=== PATIENT | male | born 1945 | race Caucasian/White ===

== ENCOUNTER 2016-05-26 09:29 | Emergency (ER) | payer OTHER ==
[~2016-05-26 09:29] MED LIST: ALBUTEROL2.5 MG/3 M IN; ARIPIPRAZOLE10 MG; ASMANEX; ASPIRIN 81 LOW81 MG PO; GABAPENTIN300 MG PO; HYDROXYZINE HCL25 MG PO; LOPRESSOR25 MG PO; MS CONTIN15 MG PO; NITROSTAT0.4 MG SL; OMEPRAZOLE20 M1; SIMVASTATIN40 MG
--- NOTE | 2016-05-26 10:25 | DIAGNOSTIC IMAGING REPORT ---
PROCEDURE: XR CHEST 2 VIEW INDICATION: COUGH TECHNIQUE: PA and lateral views. COMPARISON: Chest 08/07/2015 FINDINGS: Lungs are clear. Heart and mediastinum are normal. Thorax is normal. IMPRESSION: 1. Negative chest.
--- NOTE | 2016-05-26 12:25 | ED ORDER SUMMARY ---
..... Patient: KYRA PARIKH OrderSheet [facility] VisitID: [id number] [place] [address] 70y, M Registration Date/Time: 05/26/2016 ORDER SHEET Weight: 97.5 kg (stated) Allergies: No Known Drug Allergy GENERAL ORDERS: Chest 2V Urgent (09:46 05/26/2016 Vielka BARONE) (Ack 9:48 Reed) (10:16 JSimbeck R.N.) Rapid Influenza Screen (Nasal Pharyngeal) (swab) Urgent (09:47 05/26/2016 Vielka BARONE) (Ack 9:48 Reed) (9:55 JSimbeck R.N.) Relocation Manager (Continuous) (10:14 05/26/2016 Vielka BARONE) (Ack 11:04 TBergley) (11:41 JSanders R.N.) - (Please irrigate L ear) (10:14 05/26/2016 Vielka BARONE) (10:48 TBergley) BNP Urgent (10:05/26/2016 Vielka BARONE) (Ack 10:29 Reed) (10:54 JSanders R.N.) CBC w Diff Urgent (10:14 05/26/2016 Vielka BARONE) (Ack 10:29 Reed) (10:54 JSanders R.N.) CMP Urgent (10:14 05/26/2016 Vielka BARONE) (Ack 10:29 Reed) (10:54 JSanders R.N.) Pulse oximeter (10:14 05/26/2016 Vielka BARONE) (10:16 JSimbeck R.N.) MEDICATION ORDERS: Zithromax PO 500 mg (NOW) (12:13 05/26/2016 Vielka BARONE) (12:28 JSanders R.N.) Tylenol PO 650 mg (NOW) (12:33 05/26/2016 CLARKanders R.N. verbal order read back to Vielka BARONE) (12:37 JSanders R.N.) IV FLUIDS: IV NS : initial bolus 1000 mL (1000 mL/hr), then none - (NOW) (10:14 05/26/2016 Vielka BARONE) (11:08 Ramona Gagnon) ORDER SHEET NOTES: [Electronically signed by Ana Paula Alba R.N. (13:18 05/26/2016)] [Electronically signed by Lynette Rivers MD (06:24 05/30/2016)] [Electronically locked/signed by Ana Paula Alba R.N. (13:18 05/26/2016)]
--- NOTE | 2016-05-26 12:25 | ED CLINICAL REPORT ---
Clinical Report - Physicians/Mid Levels [facility] [address] [place] [address] 05/26/2016 9:31 Patient: KYRA PARIKH Time Seen: 09:44. Arrived- By private vehicle. Historian- patient. HISTORY OF PRESENT ILLNESS Chief Complaint: DYSPNEA and cough. This started about 1 week ago and is still present. The dyspnea is described as moderate. The patient has had a cough, chills and dyspnea on exertion. He has had moderate amounts of thick sputum. No fever, sweating episodes, wheezing or chest pain or discomfort. No calf pain, foot swelling, orthopnea, anxiety or dizziness. No tingling, numbness or palpitations. (Pt's states that their 3-year-old daughter had URI-type sx, and that pt began to have the above sx shortly after. Pt states that he has not been feeling increasingly worse, just is not feeling better. Pt tried taking his albuterol inhaler this morning, and states it did not seem to help.). Similar symptoms previously: Recent medical care: Not recently seen/assessed. REVIEW OF SYSTEMS The patient has had a nasal discharge and nausea but not had weight loss. No muscle aches, eye irritation, sore throat, sinus drainage or vomiting. No abdominal pain, diarrhea, black stools, bloody stools or headache. No fainting episodes, blurred vision, difficulty with urination, skin rash or enlarged lymph nodes. No joint pain. All systems otherwise negative, except as recorded above. PAST HISTORY Medications: Albuterol Sulfate Inhalation. ARIPiprazole Oral (Tablet 20 mg) 1 tablet. Aspirin EC Oral (Tablet Delayed Release 81 mg) 1 tablet, daily. Gabapentin Oral (Capsule 300 mg) 2 capsules, 3x a day. HydrOXYzine HCl Oral (Tablet 50 mg) 2 tablets, at bedtime. Metoprolol Tartrate Oral (Tablet 25 mg) 1/2 tablet, BID. Mometasone Furoate Inhalation. Morphine Sulfate Oral (Tablet 15 mg) 1 tablet, 4x a day as needed. Omeprazole Oral (Tablet Delayed Release 20 mg) 1 tablet, 2x a day. Simvastatin Oral (Tablet 40 mg) 1 tablet, daily. Allergies: No Known Drug Allergy. SOCIAL HISTORY Former smoker. Occasional alcohol use. ADDITIONAL NOTES The nursing notes have been reviewed. PHYSICAL EXAM Vital Signs: 05/26/2016 09:37 BP: 158/98. HR: 113. RR: 24. O2 saturation: 96%. Temp: 98.7 F. Pain level now: 310. Have been reviewed. Appearance: Alert. No acute distress. (Pt appears moderately uncomfortable.). Eyes: Pupils equal, round and reactive to light. Eyes normal inspection. ENT: Left TM completely obscured by cerumen. Cleared with irrigation. Nose normal. Neck: Normal inspection. CVS: Normal heart rate and rhythm. Heart sounds normal. Pulses normal. Respiratory: No respiratory distress. Breath sounds normal. Abdomen: Soft and nontender. Back: Normal inspection. Skin: Skin warm and dry. Normal skin color. No rash. Normal skin turgor. Extremities: Extremities exhibit normal ROM. No lower extremity edema. Neuro: Oriented X 3. No motor deficit. No sensory deficit. LABS, X-RAYS, AND EKG Chest X-ray: No acute disease. Normal lung markings present. Normal heart size. Mediastinum normal. Great vessels normal. Soft tissues normal. No infiltrate. No fracture. No bony lesion present. Views: PA and lateral. Technique: good. The X-rays were independently viewed by me, interpreted by the radiologist and contemporaneously by me and discussed with the radiologist. Prior films were not available for comparison. Laboratory Tests: CBC w Diff: (BERNARD: 05/26/2016 10:40) ( MsgRcvd 05/26/2016 11:35) Final results Test Result Flag Units (Reference) WHITE BLOOD COUNT 16.8 H K/uL (4.5-11.5) RED BLOOD COUNT 5.34 M/uL (4.50-5.90) HEMOGLOBIN 16.0 gm/dL (13.5-17.5) HEMATOCRIT 48.2 % (41.0-53.0) MEAN CELL VOLUME 90 fL (80-100) MEAN CORPUSCULAR HGB 30 pg (26-34) MEAN CORPUSCULAR HGB CONC 33 g/dL (31-37) RED CELL DISTRIBUTION WIDTH 13.6 % (11.6-14.8) PLATELET COUNT 282 K/uL (150-400) NEUTROPHIL % 87.1 H % (50-75) LYMPH % 6.1 L % (25-40) MONO % 6.5 % (3-14) EOSINOPHIL % 0.1 % (0-4) BASOPHIL % 0.2 % (0-2) BNP: (BERNARD: 05/26/2016 10:40) ( [facility] 05/26/2016 12:06) Final results Test Result Flag Units (Reference) B-TYPE NATRIURETIC PEPTIDE 35.9 pg/ml (5-100) CMP: (BERNARD: 05/26/2016 10:40) ( MsgRcvd 05/26/2016 12:01) Final results Test Result Flag Units (Reference) GLUCOSE 120 H mg/dL (70-110) BUN 16 mg/dL (7-18) CREATININE 0.7 mg/dL (0.6-1.3) Estimated GFR >60 mL/min Estimated GFR- >60 mL/min Note: Persistent reduction over 3 months in eGFR<60 mL/min/1.73 m2 defines CKD. Patients with eGFR values>=60 mL/min/1.73 m2 may also have CKD if evidence ofpersistent proteinuria. Additional information may be foundat www.kidney.org. SODIUM 143 mmol/L (136-145) POTASSIUM 3.3 L mmol/L (3.5-5.1) CHLORIDE 105 mmol/L (98-107) CARBON DIOXIDE 24 mmol/L (21-32) CALCIUM 9.0 mg/dL (8.5-10.1) TOTAL PROTEIN 7.5 g/dL (6.4-8.2) ALBUMIN 3.7 g/dL (3.3-5.0) BILIRUBIN, TOTAL 0.8 mg/dL (0.0-1.0) ALKALINE PHOSPHATASE 67 U/L (46-116) AST (SGOT) 15 U/L (15-37) ALT (SGPT) 19 U/L (12-78) Rapid Influenza Screen: (BERNARD: 05/26/2016 09:53) ( [facility] [place] 05/26/2016 10:15) Final results SPECIMEN DESCRIPTION: SWAB Test Result Flag Units (Reference) RAPID INFLUENZA SCREEN DATE: 05/26/16 INFLUENZA A: NEGATIVE SCREEN FOR INFLUENZA A INFLUENZA B: NEGATIVE SCREEN FOR INFLUENZA B . Pulse Oximetry: 05/26/2016 09:37 O2 saturation: 96%. (FIO2 - room air). Interpretation: normal. PROGRESS AND PROCEDURES Course of Care: PT was given a liter of NS. He was worked up with labs (leukocytosis, mild hyperglycemia and hypokalemia), influenza swab (-), and CXR (-). He was given a liter of NS, and a dose of Zithromax for bronchitis. No emergent condition identified. Patient and family counseled in person regarding the patient's stable condition, test results, diagnosis and need for follow-up. Concerns were addressed. Old medical records reviewed. Disposition: Discharged. Condition: stable and improved. CLINICAL IMPRESSION Acute bacterial bronchitis associated with chronic obstructive pulmonary disease. Acute viral (presumed) rhinitis. Impacted cerumen left ear. INSTRUCTIONS (Your chest x-ray is clear, and your influenza test is negative. Your labs look good, other than your white blood cell count being elevated (not surprising, with your respiratory illness). You most likely have a viral illness, with some bronchitis on top of this (you have increased susceptibility to develop bronchitis, having COPD). You have been started on antibiotics for this.). Warnings: GENERAL WARNINGS: Return or contact your physician immediately if your condition worsens or changes unexpectedly, if not improving as expected, or if other problems arise. Your Current Medications: CONTINUE TAKING THE FOLLOWING MEDICATIONS: Albuterol Sulfate Inhalation. ARIPiprazole Oral : Tablet 20 mg, 1 tablet. Aspirin EC Oral : Tablet Delayed Release 81 mg, 1 tablet daily. Gabapentin Oral : Capsule 300 mg, 2 capsules 3x a day. HydrOXYzine HCl Oral : Tablet 50 mg, 2 tablets at bedtime. Metoprolol Tartrate Oral : Tablet 25 mg, 1/2 tablet BID. Mometasone Furoate Inhalation. Morphine Sulfate Oral : Tablet 15 mg, 1 tablet 4x a day, prn. Omeprazole Oral : Tablet Delayed Release 20 mg, 1 tablet 2x a day. Simvastatin Oral : Tablet 40 mg, 1 tablet daily. Prescription Medications: Zithromax Z-Aubrey: Take according to package instructions 2 orally today, followed by 1 orally every day for the next 4 days. Total course 5 days. No refills. Substitution is permissible. Follow-up: Follow up with your doctor in five days if not better. Understanding of the discharge instructions verbalized by patient and family. (Electronically signed by Lynette Rivers MD 05/30/2016 6:24)
--- NOTE | 2016-05-26 12:25 | ED NURSING NOTES ---
Clinical Report - Nurses [facility] [address] [place] [address] 05/26/2016 9:31 Patient: KYRA PARIKH TRIAGE Triage time 09:37. Acuity: LEVEL 3. Chief Complaint: SHORTNESS OF BREATH and DIFFICULTY BREATHING and (Chills, onset 1 week ago, SOB worse this am.). 09:41 05/26/16. SEPSIS SCREEN: Sepsis Screen. Negative (no infection suspected/documented). JAMILA COMA SCORE: [place] Coma Scale: 15- eyes open spontaneously (4); best verbal response- oriented x 4 (5); best motor response- obeys commands (6). --09:42 Noel Odonnell R.N. 09:37 05/26/16. BP: 158/98. HR: 113. RR: 24. O2 saturation: 96% on room air. Temp: 98.7 F (oral). Pain level now: 06/10. --09:42 Noel Odonnell R.N. Weight: 97.5 kg stated. Height/Length: 72 inches Per Patient. BMI: 29.2. --09:40 Noel Odonnell R.N. Medications Albuterol Sulfate Inhalation. ARIPiprazole Oral (Tablet 20 mg) 1 tablet. Aspirin EC Oral (Tablet Delayed Release 81 mg) 1 tablet, daily. Gabapentin Oral (Capsule 300 mg) 2 capsules, 3x a day. HydrOXYzine HCl Oral (Tablet 50 mg) 2 tablets, at bedtime. Metoprolol Tartrate Oral (Tablet 25 mg) 1/2 tablet, BID. Mometasone Furoate Inhalation. Morphine Sulfate Oral (Tablet 15 mg) 1 tablet, 4x a day as needed. Omeprazole Oral (Tablet Delayed Release 20 mg) 1 tablet, 2x a day. Simvastatin Oral (Tablet 40 mg) 1 tablet, daily. --09:39 Noel Odonnell R.N. Allergies No Known Drug Allergy. --09:39 Noel Odonnell R.N. History Arrived by private vehicle. Historian: patient and family. SOCIAL HX: Former smoker, end date 1993. Occasional alcohol use. History of drug use: marijuana. (daily). Infectious disease exposure. (scottie has been sick, but is improving now.). ABUSE ASSESSMENT: No report of abuse. --09:42 Noel Odonnell R.N. PROBLEMS: Chest Pain. Abnormal EKG. Chronic pain in neck and back. COPD - Chronic Obstructive Pulmonary Disease. Depression. Anxiety Reaction. Gastroesophageal Reflux. Hyperlipidemia. Syncope. Hypertension. Lung Disease. --09:40 Noel Odonnell R.N. ADDITIONAL SURGERIES: Appendectomy. Cholecystectomy. Hernia Repair. --09:40 Noel Odonnell R.N. Interventions ID band on patient. To treatment room. --09:42 Noel Odonnell R.N. PHYSICAL ASSESSMENT 09:49 05/26/16. To room via wheelchair. GENERAL / NEURO / PSYCH: Alert. Oriented X 4. Appears anxious. HEENT: Mucous membranes are pink. RESPIRATORY: No respiratory distress. The patient can speak in full sentences. Accessory muscle use. Prolonged expirations. No chest wall tenderness. Decreased breath sounds. Expiratory bilateral wheezes diffusely (greater on the right). Crackles present (Audible expiratory crackles). No retractions or stridor. CVS: Capillary refill less than 2 seconds. GI / : Abdomen soft and nontender. Bowel sounds within normal limits. SKIN: Skin is warm and dry. Poor skin turgor. --09:49 Noel Odonnell R.N. NURSING PROGRESS NOTES 09:50 05/26/16. Pulse oximeter and NIBP monitor placed on patient; monitor alarms on. Patient gowned. Two patient identifiers checked. Call light placed in reach. Bed placed in lowest position. Brakes of bed on. Patient ready for evaluation- chart flagged. --09:50 Noel Odonnell R.N. 09:56 05/26/16. Patient transported to radiology by stretcher with tech. (09:54). --09:56 Noel Odonnell R.N. Patient returned from radiology by stretcher with tech. (10:01). --10:01 Noel Odonnell R.N. 10:40 05/26/2016 Site #1 started via IV in the right wrist with an 20g angiocath, with aseptic technique and good blood return; one attempt. Blood drawn: rainbow set. Labeled in the presence of the patient. Saline lock flushed with 10 mL saline. --11:08 Noel Odonnell R.N. 10:43 05/26/2016 Started bag #1 1000 mL IV Fluids IV NS (Saline); bolus of 1000 mL over 1 hour(s) via site #1. Allergies verified and confirmed 5 rights. IV patency established. IV site checked: no pain, redness, or swelling. IV flushed thoroughly pre- and post-medication administration. --11:08 Noel Odonnell R.N. 10:53 05/26/16. ( Irrigated patients ear with 80cc of 1/2 warm water and H2O2). --10:53 Ana Paula Alba R.N. 11:40 05/26/2016 IV Fluids IV NS Discontinued: bag #1 completed. Total amount infused: 1000 mL. IV patency established. IV site checked: no pain, redness, or swelling. IV flushed thoroughly. --11:40 Ana Paula Alba R.N. 12:28 05/26/2016 Zithromax PO Tablets 500 mg given. Allergies verified and confirmed 5 rights. --12:28 Ana Paula Alba R.N. 12:26 05/26/16. BP: 124/65. HR: 103. RR: 20. O2 saturation: 96% on room air. Temp: 100.1 F (oral). Pain level now: 0/10. --12:29 Ana Paula Alba R.N. 12:29 05/26/16. --12:29 Ana Paula Alba R.N. 12:37 05/26/2016 Tylenol (Acetaminophen) PO 650 mg given. Allergies verified and confirmed 5 rights. --12:37 Ana Paula Alba R.N. DISPOSITION / DISCHARGE 13:13 05/26/16. BP: 124/65 (regular adult cuff) taken on the right arm, while sitting. HR: 76 (regular). RR: 20. O2 saturation: 95% on room air. Temp: 100.2 F (oral). ED physician notified. Pain level now: 0/10. Additional comments: Pateint instructed to use tylenol at home to get tempterature down. --13:16 Ana Paula Alba R.N. 13:07 05/26/2016 Site #1 removed upon discharge. Bandage applied. --13:17 Ana Paula Alba R.N. 13:16 05/26/16. Departure time: 13:14 May 26 2016. Condition at departure: unchanged. No learning barriers present. Discharge instructions provided and reviewed with the patient and spouse. Reviewed medication(s) side effects and precautions information. Prescription(s) given to the patient. Patient and spouse verbalized understanding. Written instructions provided in Iranian. The patient was discharged by the physician. He was discharged home and accompanied by spouse. He left the Emergency Department ambulatory and via private vehicle. Spouse driving. --13:16 Ana Paual Alba R.N. Locked/Released at 05/26/2016 13:18 by Ana Paula Alba R.N.
--- NOTE | 2016-05-26 12:25 | ED ORDER SUMMARY ---
..... Patient: KYRA PARIKH OrderSheet [facility] VisitID: [id number] [place] [address] 70y, M Registration Date/Time: 05/26/2016 ORDER SHEET Weight: 97.5 kg (stated) Allergies: No Known Drug Allergy GENERAL ORDERS: Chest 2V Urgent (09:46 05/26/2016 Vielka BARONE) (Ack 9:48 Reed) (10:16 JSimbeck R.N.) Rapid Influenza Screen (Nasal Pharyngeal) (swab) Urgent (09:47 05/26/2016 Vielka BARONE) (Ack 9:48 Reed) (9:55 JSimbeck R.N.) Ux Specialist (Continuous) (10:14 05/26/2016 Vielka BARONE) (Ack 11:04 TBergley) (11:41 JSanders R.N.) - (Please irrigate L ear) (10:14 05/26/2016 Vielka BARONE) (10:48 TBergley) BNP Urgent (10:05/26/2016 Vielka BARONE) (Ack 10:29 Reed) (10:54 JSanders R.N.) CBC w Diff Urgent (10:14 05/26/2016 Vielka BARONE) (Ack 10:29 Reed) (10:54 JSanders R.N.) CMP Urgent (10:14 05/26/2016 Vielka BARONE) (Ack 10:29 Reed) (10:54 JSanders R.N.) Pulse oximeter (10:14 05/26/2016 Vielka BARONE) (10:16 JSimbeck R.N.) MEDICATION ORDERS: Zithromax PO 500 mg (NOW) (12:13 05/26/2016 Vielka BARONE) (12:28 JSanders R.N.) Tylenol PO 650 mg (NOW) (12:33 05/26/2016 CLARKanders R.N. verbal order read back to Vielka BARONE) (12:37 JSanders R.N.) IV FLUIDS: IV NS : initial bolus 1000 mL (1000 mL/hr), then none - (NOW) (10:14 05/26/2016 Vielka BARONE) (11:08 Ramona Gagnon) ORDER SHEET NOTES: [Electronically signed by Ana Paula Alba R.N. (13:18 05/26/2016)] [Electronically signed by Lynette Rivers MD (06:24 05/30/2016)] [Electronically locked/signed by Ana aPula Alba R.N. (13:18 05/26/2016)]
--- NOTE | 2016-05-30 06:24 | ED MAR SUMMARY ---
..... Medication Administration Record [facility] [address] [place] [address] Patient: KYRA PARIKH Visit ID: [id number] 70y, M Weight: 97.5 kg Height/Length: 72 in BMI: 29.2 ALLERGIES: No Known Drug Allergy Start 10:43 05/26/2016 Noel Odonnell R.N., Stop 11:40 05/26/2016 Ana Paula Alba R.N. Medication Administered: IV NS (SALINE), Dose: IV Fluids, Bolus: 1000 mL over 1 hour(s), Dispensed: 1000 mL bag, Site: #1 right wrist. Medication Ordered: IV NS : initial bolus 1000 mL (1000 mL/hr), then none - (NOW). Given 12:28 05/26/2016 Ana Paula Alba R.N. Medication Administered: ZITHROMAX [PO], Dose: 500 mg Tablets PO. Medication Ordered: Zithromax PO 500 mg (NOW). Given 12:37 05/26/2016 Ana Paula Alba R.N. Medication Administered: TYLENOL [PO] (ACETAMINOPHEN), Dose: 650 mg PO. Medication Ordered: Tylenol PO 650 mg (NOW).
--- NOTE | 2016-05-30 06:24 | ED MED RECONCILIATION SUMMARY ---
Patient: KYRA PARIKH Medication Reconciliation Report [facility] VisitID: [id number] [address] [place] [address] 70y, M Registration Date/Time: 05/26/2016 Weight: 97.5 kg Height/Length: 72 in. BMI: 29.2 ALLERGIES: No Known Drug Allergy The patient's Home Medications are listed below: CONTINUE TAKING THE FOLLOWING MEDICATIONS: Albuterol Sulfate Inhalation ARIPiprazole Oral (20 mg) 1 tablet Aspirin EC Oral (81 mg) 1 tablet, daily Gabapentin Oral (300 mg) 2 capsules, 3x a day HydrOXYzine HCl Oral (50 mg) 2 tablets, at bedtime Metoprolol Tartrate Oral (25 mg) 1/2 tablet, BID Mometasone Furoate Inhalation Morphine Sulfate Oral (15 mg) 1 tablet, 4x a day Omeprazole Oral (20 mg) 1 tablet, 2x a day Simvastatin Oral (40 mg) 1 tablet, daily The source(s) of the original Home Medication information: Not obtained. The following Medications were given to the patient in the Emergency Department: IV NS IV Fluids bolus 1000 mL over 1 hour(s), administered: 05/26/2016 10:43:00 AM Zithromax [PO] PO 500 mg, administered: 05/26/2016 12:28:00 PM Tylenol [PO] PO 650 mg, administered: 05/26/2016 12:37:00 PM The following Medications were prescribed to the patient: Zithromax Z-Aubrey: Take according to package instructions 2 orally today, followed by 1 orally every day for the next 4 days. Total course 5 days. No refills. Substitution is permissible. -- Lynette Rivers MD
--- NOTE | 2016-05-30 06:24 | ED DISCHARGE INSTRUCTIONS ---
Patient: KYRA PARIKH General Instructions [facility] VisitID: [id number] [place] [address] 70y, M Registration Date/Time: 05/26/2016 Acute bacterial bronchitis associated with chronic obstructive pulmonary disease. Acute viral (presumed) rhinitis. Impacted cerumen left ear. INSTRUCTIONS (Your chest x-ray is clear, and your influenza test is negative. Your labs look good, other than your white blood cell count being elevated (not surprising, with your respiratory illness). You most likely have a viral illness, with some bronchitis on top of this (you have increased susceptibility to develop bronchitis, having COPD). You have been started on antibiotics for this.). Warnings: GENERAL WARNINGS: Return or contact your physician immediately if your condition worsens or changes unexpectedly, if not improving as expected, or if other problems arise. Your Current Medications: CONTINUE TAKING THE FOLLOWING MEDICATIONS: Albuterol Sulfate Inhalation. ARIPiprazole Oral : Tablet 20 mg, 1 tablet. Aspirin EC Oral : Tablet Delayed Release 81 mg, 1 tablet daily. Gabapentin Oral : Capsule 300 mg, 2 capsules 3x a day. HydrOXYzine HCl Oral : Tablet 50 mg, 2 tablets at bedtime. Metoprolol Tartrate Oral : Tablet 25 mg, 1/2 tablet BID. Mometasone Furoate Inhalation. Morphine Sulfate Oral : Tablet 15 mg, 1 tablet 4x a day, prn. Omeprazole Oral : Tablet Delayed Release 20 mg, 1 tablet 2x a day. Simvastatin Oral : Tablet 40 mg, 1 tablet daily. Prescription Medications: Zithromax Z-Aubrey: Take according to package instructions 2 orally today, followed by 1 orally every day for the next 4 days. Total course 5 days. No refills. Substitution is permissible. Follow-up: Follow up with your doctor in five days if not better. Understanding of the discharge instructions verbalized by patient and family. ADDITIONAL INFORMATION Bronchitis (Adult: Abx Tx) BRONCHITIS is an infection of the air passages (bronchial tubes). It often occurs during the common cold. Symptoms include cough with mucus (phlegm) and low-grade fever. Bronchitis usually lasts 7-14 days. Mild cases can be treated with simple home remedies. More severe infection is treated with an antibiotic. Home Care: If symptoms are severe, rest at home for the first 2-3 days. When you resume activity, don't let yourself get too tired. Do not smoke. Avoid being exposed to the smoke of others. You may use acetaminophen (Tylenol) or ibuprofen (Motrin, Advil) to control fever or pain, unless another medicine was prescribed for this. [NOTE: If you have chronic liver or kidney disease or ever had a stomach ulcer or GI bleeding, talk with your doctor before using these medicines.] Your appetite may be poor, so a light diet is fine. Avoid dehydration by drinking 6-8 glasses of fluids per day (water, soft, drinks, juices, tea, soup, etc.). Extra fluids will help loosen secretions in the lungs. Kfox-fwe-lhwdlpt cough medicines that containdextromethorphan(such as Robitussin DM) and decongestants (Actifed or Sudafed) may help relieve cough and congestion. [NOTE: Do not use decongestants if you have high blood pressure.] Finish all antibiotic medicine, even if you are feeling better after only a few days. Follow Up with your doctor or as directed if you dont start to feel better after three days. [NOTE: If you are age 65 or older, or if you have chronic asthma or COPD, we recommend a PNEUMOCOCCAL VACCINATION every five years and a yearly INFLUENZAVACCINATION (FLU-SHOT) every . Ask your doctor about this. If you had an X-ray, a radiologist will review it. You will be notified of any new findings that may affect your care.] Get Prompt Medical Attention if any of the following occur: Fever over 100.4F (38.0C) for more than three days Trouble breathing, wheezing or pain with breathing Coughing up blood or increased amounts of colored sputum Weakness, drowsiness, headache, facial pain, ear pain or a stiff neck Viral Respiratory Illness [Adult] You have an Upper Respiratory Illness (URI) caused by a virus. This illness is contagious during the first few days. It is spread through the air by coughing and sneezing or by direct contact (touching the sick person and then touching your own eyes, nose or mouth). Most viral illnesses go away within 7-10 days with rest and simple home remedies. Sometimes, the illness may last for several weeks. Antibiotics will not kill a virus and are generally not prescribed for this condition. Home Care: 1) If symptoms are severe, rest at home for the first 2-3 days. When you resume activity, don't let yourself get too tired. 2) Avoid being exposed to cigarette smoke (yours or others). 3) Tylenol (acetaminophen) or ibuprofen (Advil, Motrin) will help fever, muscle aching and headache. (Persons under 18 with fever should not take aspirin since this may cause liver damage.) 4) Your appetite may be poor, so a light diet is fine. Avoid dehydration by drinking 6-8 glasses of fluids per day (water, soft drinks, juices, tea, soup). Extra fluids will help loosen secretions in the nose and lungs. 5) Mexv-alp-evihllw cold medicines will not shorten the length of time youre sick, but they may be helpful for the following symptoms: cough (Robitussin DM); sore throat (Chloraseptic lozenges or spray); nasal and sinus congestion (Actifed, Sudafed, Chlortrimeton). Follow Up with your doctor or as advised if you dont improve over the next week. Get Prompt Medical Attention if any of the following occur: -- Cough with lots of colored sputum (mucus) or blood in your sputum -- Chest pain, shortness of breath, wheezing or have trouble breathing -- Severe headache; face, neck or ear pain -- Fever over 100.4 F (38.0 C) for more than three days -- You cant swallow due to throat pain Earwax (Treated) Everyone produces earwax from the lining of the ear canal. It serves to lubricate and protect the ear. The wax that forms in the canal slowly moves toward the outside of the ear and falls out. Sometimes there will be a build-up of wax in the ear canal causing a blockage and loss of hearing. An ear wax buildup was removed from your ear today. Home Care Preventing Future Problems If you have a tendency to build up wax in the ear canal, you should clear the wax at home on a regular basis (about once every six months ) before it causes discomfort. Unless a prescription medicine was given, you may use an qrle-evp-zqkepur product made for clearing earwax (such as Debrox or Murine Earwax Drops). These contain carbamide peroxide and are available [id number]-rkmdqdh in a kit with a small bulb syringe. To use: lie down with the blocked ear facing upward. Apply one dropper full of medicine and wait a few minutes. Wiggle the outer ear to get the solution to enter the canal. Lean over a sink or basin with the blocked ear turned downward. Use a rubber bulb syringe filled with LUKEWARM water to rinse the ear several times. Use gentle pressure only. You may need to repeat the irrigation several times before the wax flows out. If you are having trouble draining all of the water out of your ear canal after this procedure, you may put a few drops of rubbing alcohol into the ear canal. This will help evaporate the remaining water. Do Not DO NOT use cold water to rinse the ear since this will make you dizzy. DO NOT perform this procedure if you have an ear infection (ear pain, fever, or fluid draining from the ear). DO NOT perform this procedure if you have a punctured eardrum. DO NOT use cotton applicators (Q-tips), matches, toothpicks, jv pins, keys or other objects to clean the ear canal. This can cause infection of the ear canal or rupture of the eardrum. Because of their size and shape, it is common for cotton applicators to push the ear wax deeper into the ear canal instead of removing it. This can make matters worse. Follow Up with your doctor or this facility as directed by our staff. Get Prompt Medical Attention if any of the following occur: Worsening ear pain Fever of 100.4F (38C) or higher, or as directed by your healthcare provider Hearing does not return to normal after three days of treatment Fluid drainage or bleeding from the ear canal Swelling, redness or tenderness of the outer ear Headache, neck pain or stiff neck You have been given the following additional information: Bronchitis, Antiobiotic Treatment (Adult) Uri, Viral, No Abx (Adult) Ear Wax, Treated (Electronically signed by Lynette Rivers MD 05/30/2016 6:24)
--- NOTE | 2016-05-30 06:24 | ED MAR SUMMARY ---
..... Medication Administration Record [facility] [address] [place] [address] Patient: KYRA PARIKH Visit ID: [id number] 70y, M Weight: 97.5 kg Height/Length: 72 in BMI: 29.2 ALLERGIES: No Known Drug Allergy Start 10:43 05/26/2016 Noel Odonnell R.N., Stop 11:40 05/26/2016 Ana Paula Alba R.N. Medication Administered: IV NS (SALINE), Dose: IV Fluids, Bolus: 1000 mL over 1 hour(s), Dispensed: 1000 mL bag, Site: #1 right wrist. Medication Ordered: IV NS : initial bolus 1000 mL (1000 mL/hr), then none - (NOW). Given 12:28 05/26/2016 Ana Paula Alba R.N. Medication Administered: ZITHROMAX [PO], Dose: 500 mg Tablets PO. Medication Ordered: Zithromax PO 500 mg (NOW). Given 12:37 05/26/2016 Ana Paula Alba R.N. Medication Administered: TYLENOL [PO] (ACETAMINOPHEN), Dose: 650 mg PO. Medication Ordered: Tylenol PO 650 mg (NOW).
--- NOTE | 2016-05-30 06:24 | ED MED RECONCILIATION SUMMARY ---
Patient: KYRA PARIKH Medication Reconciliation Report [facility] VisitID: [id number] [address] [place] [address] 70y, M Registration Date/Time: 05/26/2016 Weight: 97.5 kg Height/Length: 72 in. BMI: 29.2 ALLERGIES: No Known Drug Allergy The patient's Home Medications are listed below: CONTINUE TAKING THE FOLLOWING MEDICATIONS: Albuterol Sulfate Inhalation ARIPiprazole Oral (20 mg) 1 tablet Aspirin EC Oral (81 mg) 1 tablet, daily Gabapentin Oral (300 mg) 2 capsules, 3x a day HydrOXYzine HCl Oral (50 mg) 2 tablets, at bedtime Metoprolol Tartrate Oral (25 mg) 1/2 tablet, BID Mometasone Furoate Inhalation Morphine Sulfate Oral (15 mg) 1 tablet, 4x a day Omeprazole Oral (20 mg) 1 tablet, 2x a day Simvastatin Oral (40 mg) 1 tablet, daily The source(s) of the original Home Medication information: Not obtained. The following Medications were given to the patient in the Emergency Department: IV NS IV Fluids bolus 1000 mL over 1 hour(s), administered: 05/26/2016 10:43:00 AM Zithromax [PO] PO 500 mg, administered: 05/26/2016 12:28:00 PM Tylenol [PO] PO 650 mg, administered: 05/26/2016 12:37:00 PM The following Medications were prescribed to the patient: Zithromax Z-Aubrey: Take according to package instructions 2 orally today, followed by 1 orally every day for the next 4 days. Total course 5 days. No refills. Substitution is permissible. -- Lynette Rivers MD
== END 2016-05-26 13:14 | disposition home or self-care (01) ==
LOC: ED SRH 09:29
DX: J44.0 Chronic obstructive pulmonary disease with (acute) lower respiratory infection (principal); B96.89 Other specified bacterial agents as the cause of diseases classified elsewhere; J00 Acute nasopharyngitis [common cold]; H61.22 Impacted cerumen, left ear; I10 Essential (primary) hypertension; Z79.82 Long term (current) use of aspirin; Z79.899 Other long term (current) drug therapy; Z87.891 Personal history of nicotine dependence
CPT/HCPCS: 90100; 91320; 91400; 95059